=== PATIENT | female | born 1985 | race Asian ===

== ENCOUNTER 2018-02-03 10:54 | Emergency (ER) | payer BC ==
[2018-02-03 12:10] LABS: BILIRUBIN,URINE NEGATIVE (NEGATIVE); GLUCOSE, URINE (UA) NEGATIVE (NEGATIVE); KETONES,URINE (UA) NEGATIVE (NEGATIVE); LEUKOCYTE ESTERASE, URINE NEGATIVE (NEGATIVE); NITRITE,URINE NEGATIVE (NEGATIVE); OCCULT BLOOD,URINE MODERATE (NEGATIVE); PH,URINE 7.5 PH (5.0-7.5); PROTEIN,URINE NEGATIVE (NEGATIVE); UROBILINOGEN,URINE 0.2 (NORMAL) E.U./dL (NORMAL)
[2018-02-03 12:18] LABS: CLARITY,URINE CLEAR (CLEAR); HCG UR QUAL POSITIVE
[2018-02-03 12:19] LABS: BACTERIA,URINE None Seen /HPF (None Seen); RBC,URINE 0-5 /HPF (0-5); SQUAMOUS EPITHELIAL CELL,UR MOD Squamous (<= Few)
--- NOTE | 2018-02-03 12:41 | ED Physician Documentation ---
PD HPI FEMALE - Stated complaint Stated Complaint: 9WKS PREG/SPOTTING - Chief complaint Chief Complaint: General - History obtained from History obtained from: Patient - History of Present Illness Timing - onset: How many days ago (2) Timing - duration: Days (2) Timing - details: Gradual onset, Intermittant (has had some light vaginal spotting of red blood the past 2 days; small clot today. No pains. Had U/S few weeks ago showing IUP.) Associated symptoms: Vaginal bleeding. No: Fever, Pelvic pain, Vaginal discharge, Dysuria Contributing factors: (9 weeks) Similar symptoms before: Has not had sx before Recently seen: Clinic (few weeks ago for visit, with U/S showing IUP.) Review of Systems Constitutional: denies: Fever, Chills Nose: denies: Rhinorrhea / runny nose, Congestion Throat: denies: Sore throat Respiratory: denies: Cough GI: denies: Abdominal Pain, Vomiting, Diarrhea : reports: Now EGA (9). denies: Dysuria, Frequency Neurologic: denies: Generalized weakness, Near syncope, Headache PD PAST MEDICAL HISTORY - Past Medical History Past Medical History: No Cardiovascular: None Respiratory: None Neuro: None Endocrine/Autoimmune: None GI: None AREA FORESTER: None : None HEENT: None Psych: None Musculoskeletal: None Derm: None - Past Surgical History /AREA FORESTER: Breast implants - Present Medications Home Medications: Ambulatory Orders Medication Instructions Recorded Confirmed No Known Home Medications 02/03/18 02/03/18 - Allergies Allergies/Adverse Reactions: Allergies Allergy/AdvReac Type Severity Reaction Status Date / Time No Known Drug Allergies Allergy Verified 02/03/18 11:04 - Social History Does the pt smoke?: No Smoking Status: Never smoker Does the pt drink ETOH?: Yes Does the pt have substance abuse?: No - Immunizations Immunizations are current?: Yes - POLST Patient has POLST: No PD ED PE NORMAL - Vitals Vital signs reviewed: Yes - General General: Alert and oriented X 3, No acute distress, Well developed/nourished - Cardiac Cardiac: RRR, No murmur - Respiratory Respiratory: Clear bilaterally - Abdomen Abdomen: Normal bowel sounds, Soft, Non tender, Non distended - Female Female : Deferred - Rectal Rectal: Deferred - Back Back: No CVA TTP - Derm Derm: Normal color, Warm and dry - Neuro Neuro: Alert and oriented X 3, No motor deficit, Normal speech Results - Vitals Vitals: Vital Signs - 24 hr 02/03/18 02/03/18 11:00 13:05 Temperature 37.1 C Heart Rate 98 90 Respiratory 16 18 Rate Blood Pressure 102/56 L 94/67 O2 Saturation 99 99 Oxygen O2 Source Room air - Labs Labs: Laboratory Tests 02/03/18 02/03/18 11:33 11:50 HCG, Quant 45094.00 Urine Color YELLOW Urine Clarity CLEAR Urine pH 7.5 Ur Specific [place] 1.010 Urine Protein NEGATIVE Urine Glucose (UA) NEGATIVE Urine Ketones NEGATIVE Urine Occult Blood MODERATE H Urine Nitrite NEGATIVE Urine Bilirubin NEGATIVE Urine Urobilinogen 0.2 (NORMAL) Ur Leukocyte Esterase NEGATIVE Urine RBC 0-5 Urine WBC 4-5 Ur Squamous Epith Cells MOD Squamous H Urine Bacteria None Seen Ur Microscopic Review INDICATED Urine Culture Comments NOT INDICATED Urine HCG, Qual POSITIVE PD MEDICAL DECISION MAKING - ED course Complexity details: reviewed results (bedside U/S shoiwng IUP with size c/w dates. ), considered differential, d/w patient Departure - Departure Disposition: 01 Home, Self Care Clinical Impression: Bleeding in early Condition: Stable Record reviewed to determine appropriate education?: Yes Instructions: Bleeding Early Preg Comments: Stay well-hydrated drink lots of fluids. You do not have any signs of bladder infection on your urine test. The bedside ultrasound showed normal at this point. Some spotting and bleeding is common in early and should just be for a few days. Recheck if you have persistent bleeding or if you have increased pain/ bleeding, fever, vomiting, worse pain, other concerns. Discharge Date/Time: 02/03/18 13:06
[2018-02-03 13:06] VITALS: BP 94/67
== END 2018-02-03 13:06 | disposition home or self-care (01) ==
LOC: ED 10:54
DX: O26.851 Spotting complicating pregnancy, first trimester (principal); Z3A.09 9 weeks gestation of pregnancy
CPT/HCPCS: 36415; 81001; 81003; 81025; 84702; 87086; 99283

== ENCOUNTER 2020-05-13 10:34 | Outpatient (CLI) | payer BC ==
[2020-05-13 11:56] LABS: HCT - HEMATOCRIT 39.2 % (37.0-47.0); HGB - HEMOGLOBIN 13.1 g/dL (12.0-16.0)
== END 2020-05-13 10:35 | disposition home or self-care (01) ==
LOC: LAB 10:34
PROVIDERS: ATTEND Family Medicine
DX: O09.529 Supervision of elderly multigravida, unspecified trimester (principal); Z3A.26 26 weeks gestation of pregnancy; Z13.1 Encounter for screening for diabetes mellitus
CPT/HCPCS: 36415; 82950; 85014; 85018

== ENCOUNTER 2021-02-26 08:54 | Emergency (ER) | payer BC, MEDICAID ==
[2021-02-26 09:39] VITALS: BP 109/89
--- NOTE | 2021-02-26 09:58 | ED Physician Documentation ---
History of Present Illness - Stated complaint Stated Complaint: C+ - Chief complaint Chief Complaint: General - History obtained from History obtained from: Patient - History of Present Illness Timing: How many weeks ago (1) - Additonal information Additional information: 36-year-old immunized female has been exposed to her who has a positive Covid test. He has been sick about 1 week and she tested +2 days ago. The patient herself states that she has some mild nasal congestion otherwise no symptoms. She is breast-feeding an . She is otherwise not ill. 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 - Present Medications Home Medications: Ambulatory Orders Medication Instructions Recorded Confirmed No Known Home Medications 02/03/18 02/26/21 - Allergies Allergies/Adverse Reactions: Allergies Allergy/AdvReac Type Severity Reaction Status Date / Time No Known Drug Allergies Allergy Verified 02/26/21 09:39 - Social History Does the pt smoke?: No Smoking Status: Never smoker Does the pt drink ETOH?: Yes Does the pt have substance abuse?: No - Immunizations Immunizations are current?: Yes - POLST Patient has POLST: No PD ED PE NORMAL - Vitals Vital signs reviewed: Yes (Hypertensive mild) - General General: Alert and oriented X 3, No acute distress, Well developed/nourished - HEENT HEENT: Atraumatic, PERRL, EOMI, Ears normal, Pharynx benign - Neck Neck: Supple, no meningeal sign, No bony TTP - Cardiac Cardiac: RRR, No murmur - Respiratory Respiratory: No respiratory distress, Clear bilaterally - Abdomen Abdomen: Normal bowel sounds, Soft, Non tender, Non distended, No organomegaly - Back Back: No CVA TTP, No spinal TTP - Derm Derm: Normal color, Warm and dry, No rash - Extremities Extremities: No deformity, No edema - Neuro Neuro: Alert and oriented X 3, leather leveler 2-12 intact, No motor deficit, No sensory deficit, Normal speech Eye Opening: Spontaneous Motor: Obeys Commands Verbal: Oriented GCS Score: 15 - Psych Psych: Normal mood, Normal affect Results - Vitals Vitals: Vital Signs - 24 hr 02/26/21 09:36 Temperature 36.2 C L Heart Rate 84 Respiratory 16 Rate Blood Pressure 109/89 H O2 Saturation 98 Oxygen O2 Source Room air PD MEDICAL DECISION MAKING - ED course Complexity details: reviewed old records, considered differential, d/w patient ED course: Previously well 36-year-old female has had exposure to Covid she has mild symptoms of nasal congestion and she is fully immunized. A send out reference test is performed and the patient is given instructions on treatment of viral URI. Departure - Departure Disposition: 01 Home, Self Care Clinical Impression: Viral URI Instructions: COVID-19 [facility], Flu and Cold: Nutrition, Prevention and Treatment Tips Follow-Up: BENI SPEARS [Primary Care Provider] - Comments: Align, today your illness appears mild and you are expected to recover well from this. My recommendation is to use an N95 or KN95 mask while you are breast- feeding your . Quarantine until your test results come back negative.
== END 2021-02-26 10:12 | disposition home or self-care (01) ==
LOC: ED 08:54
DX: J06.9 Acute upper respiratory infection, unspecified (principal); B97.89 Other viral agents as the cause of diseases classified elsewhere; Z20.822 Contact with and (suspected) exposure to COVID-19
CPT/HCPCS: 99282; 99283

== ENCOUNTER 2021-11-26 21:03 | Emergency (ER) | payer MEDICAID ==
[2021-11-26 21:11] VITALS: BP 119/76
[2021-11-26] MEDS ORDERED: ALBUTEROL NEB 2.5 MG/3 ML INH STA (21:23)
--- NOTE | 2021-11-26 21:27 | ED Physician Documentation ---
PD HPI URI - Stated complaint Stated Complaint: COUGH/CHEST TIGHTNESS - Chief complaint Chief Complaint: Resp - History obtained from History obtained from: Patient - Additional information Additional information: Patient is a 36-year-old female presenting for evaluation of cough and a sore throat that have been present since November 16. She reports that the week prior to that she been doing well but earlier in October she had also had a cough. She recently traveled to [place] to visit her in-laws. She has been having a cough and throat irritation since November 16 and has been trying Muci nex as well as Claritin-D. Yesterday she was doing better but again today she felt that the Claritin was not working and she continues to have a cough.She is not able to expel much mucus. She denies difficulty breathing. She denies chest pain. She denies known fever. Her children are also sick with similar symptoms. She took a COVID test 2 days ago which was negative.She denies concern for . Review of Systems Constitutional: denies: Fever Throat: reports: Sore throat Cardiac: denies: Chest pain / pressure Respiratory: reports: Cough. 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 - Present Medications Home Medications: Ambulatory Orders Medication Instructions Recorded Confirmed Albuterol Sulf [Ventolin Hfa 1 - 2 puffs INH Q4HR PRN #1 each 11/26/21 Inhaler] guaiFENesin/DEXTROMETHORPHAN 10 ml PO Q6H PRN #120 ml 11/26/21 [Robitussin Dm] - Allergies Allergies/Adverse Reactions: Allergies Allergy/AdvReac Type Severity Reaction Status Date / Time No Known Drug Allergies Allergy Verified 11/26/21 21:11 - Social History Does the pt smoke?: No Smoking Status: Never smoker Does the pt drink ETOH?: Yes Does the pt have substance abuse?: No - Immunizations Immunizations are current?: Yes - POLST Patient has POLST: No PD ED PE NORMAL - General General: Alert and oriented X 3, No acute distress, Well developed/nourished - HEENT HEENT: Atraumatic, Moist mucous membranes, Pharynx benign (No oral swelling, exudate or erythema) - Neck Neck: Supple, no meningeal sign - Cardiac Cardiac: RRR, Strong equal pulses - Respiratory Respiratory: No respiratory distress, Clear bilaterally, Other (Frequent coughing when taking a deep breath) - Extremities Extremities: No edema, No calf tenderness / cord - Neuro Neuro: Normal speech Results - Vitals Vitals: Vital Signs - 24 hr 11/26/21 11/26/21 21:08 21:41 Temperature 37.0 C Heart Rate 100 100 Respiratory 18 18 Rate Blood Pressure 119/76 O2 Saturation 100 Oxygen O2 Source Room air - Labs Labs: Laboratory Tests 11/26/21 11/26/21 21:34 21:34 Nasal Adenovirus (PCR) NOT DETECTED Nasal B. parapertussis DNA (PCR) NOT DETECTED Nasal Coronavir 229E PCR NOT DETECTED Nasal Coronavir HKU1 PCR NOT DETECTED Nasal Coronavir NL63 PCR NOT DETECTED Nasal Coronavir OC43 PCR NOT DETECTED Nasal Enterovir/Rhinovir PCR DETECTED A Nasal Influenza B PCR NOT DETECTED Nasal Influenza A PCR NOT DETECTED Nasal Parainfluen 1 PCR NOT DETECTED Nasal Parainfluen 2 PCR NOT DETECTED Nasal Parainfluen 3 PCR NOT DETECTED Nasal Parainfluen 4 PCR NOT DETECTED Nasal RSV (PCR) NOT DETECTED Nasal B.pertussis DNA PCR NOT DETECTED Nasal C.pneumoniae (PCR) NOT DETECTED Mega Human Metapneumo PCR NOT DETECTED Nasal M.pneumoniae (PCR) NOT DETECTED Nasal SARS-CoV-2 (PCR) NOT DETECTED Group A Strep Rapid Negative PD MEDICAL DECISION MAKING - ED course Complexity details: reviewed results, re-evaluated patient, d/w patient ED course: Patient with 1 week history of cough and sore throat. Vital signs are stable. Lung exam is reassuring. Patient does have a dry cough when taking deep breaths. Given neb treatment. Strep test is negative. Given dose of Decadron. Respiratory panel is pending at time of discharge. Chest x-ray is clear. Suspect viral illness. Patient given prescription for cough medication and albuterol inhaler. She was counseled on continuing supportive care including hydration. She is advised on concerning symptoms to return for. After discharge, noted that respiratory panel is positive for enterovirus/rhinovirus. Departure - Departure Disposition: 01 Home, Self Care Clinical Impression: URI (upper respiratory infection), Acute viral pharyngitis Condition: Stable Instructions: ED Pharyngitis Viral, ED URI Viral Follow-Up: BENI SPEARS [Primary Care Provider] - Prescriptions: Albuterol Sulf [Ventolin Hfa Inhaler] 1 - 2 puffs INH Q4HR PRN #1 each PRN Reason: Shortness Of Air/Wheezing guaiFENesin/DEXTROMETHORPHAN [Robitussin Dm] 10 ml PO Q6H PRN #120 ml PRN Reason: Cough Comments: You were evaluated for a cough and sore throat. A strep test is negative. Your chest x-ray is clear without signs of pneumonia. Your symptoms are likely due to a viral illness. A respiratory panel has been sent and is pending. This will check for COVID, influenza as well as a number of viruses that cause the common cold. We will call you if it is positive for COVID.We did give you a breathing treatment called albuterol as well as a long-acting steroid called Decadron. We hope these will help with some of your symptoms. I have also sent a prescription for an albuterol inhaler and cough medication to [facility] in [place]. Please continue with supportive care including plenty of hydration. If you have any worsening symptoms please return to the emergency department. Otherwise I would recommend a follow-up appointment with your primary care doctor given the duration of your symptoms. Discharge Date/Time: 11/26/21 22:09
--- NOTE | 2021-11-26 21:48 | XRAY Report ---
PROCEDURE: Chest 1 View X-Ray INDICATIONS: cough TECHNIQUE: One view of the chest was acquired. COMPARISON: None. FINDINGS: Surgical changes and devices: None. Lungs and pleura: No pleural effusions or pneumothorax. Lungs are clear. Mediastinum: Mediastinal contours appear normal. Heart size is normal. Bones and chest wall: No suspicious bony lesions. Overlying soft tissues appear unremarkable. IMPRESSION: 1. No acute cardiopulmonary disease. Reviewed by: Geraldo Cleary MD on 11/26/2021 9:47 PM PDT Approved by: Geraldo Cleary MD on 11/26/2021 9:47 PM PDT Station ID: [id number]
[2021-11-26 21:50] LABS: RAPID STREP SCREEN Negative (Negative)
[2021-11-26] MEDS ORDERED: CHERRY SYRUP 10 ML UDC PO ONE (21:52)
[2021-11-26] MEDS ORDERED: DEXAMETHASONE 10 MG/ML VIAL PO STA (21:52)
[2021-11-26] MEDS ORDERED: guaiFENesin/DEXTROMETHORPHAN 10 ML UDC PO ONE (22:00)
[2021-11-26] MEDS ORDERED: guaiFENesin/DEXTROMETHORPHAN 10 ML UDC PO STA (22:05)
[2021-11-26 22:29] LABS: B. PARAPERTUSSIS- RESP PCR PAN NOT DETECTED; B. PERTUSSIS- RESP PCR PANEL NOT DETECTED; C. PNEUMONIAE- RESP PCR PANEL NOT DETECTED; CORONAVIRUS 229E-RESP PCR NOT DETECTED; CORONAVIRUS HKU1-RESP PCR NOT DETECTED; CORONAVIRUS NL63-RESP PCR NOT DETECTED; CORONAVIRUS OC43-RESP PCR NOT DETECTED; HUMAN METAPNEUMOVIRUS NOT DETECTED; INFLUENZA A- RESP PCR PANEL NOT DETECTED; INFLUENZA B - RESP PCR PANEL NOT DETECTED; M. PNEUMONIAE- RESP PCR PANEL NOT DETECTED; PARAINFLUENZA VIRUS 1 NOT DETECTED; PARAINFLUENZA VIRUS 2 NOT DETECTED; PARAINFLUENZA VIRUS 3 NOT DETECTED; PARAINFLUENZA VIRUS 4 NOT DETECTED; RHINOVIRUS/ENTEROVIRUS DETECTED; RSV- RESP PCR PANEL NOT DETECTED; SARS-CoV-2 -RESP PCR PANEL NOT DETECTED
== END 2021-11-26 22:09 | disposition home or self-care (01) ==
LOC: ED 21:03
DX: J06.9 Acute upper respiratory infection, unspecified (principal); J02.9 Acute pharyngitis, unspecified; Z20.822 Contact with and (suspected) exposure to COVID-19
CPT/HCPCS: 71045; 87070; 87430; 87633; 94640; 99282; 99284; A9270